=== PATIENT | male | born 1930 | race Hispanic/Latino ===

== ENCOUNTER 2020-11-27 14:34 | Inpatient (IN) | payer OTHER ==
--- OUTSIDE RECORDS SUMMARY | 2020-11-27 14:36 | XMS REPORT | Continuity of Care Document ---
:1930 Author Organization [facility] t Address [address] [place] [address] Care Team Providers Name Role Phone DR THOMAS HERNÁNDEZ Attending Clinician Unavailable DR THOMAS HERNÁNDEZ Admitting Clinician Unavailable Problems This patient has no known problems. Allergies, Adverse Reactions, Alerts This patient has no known allergies or adverse reactions. Medications This patient has no known medications. Procedures This patient has no known procedures. Encounters Start End Encounter Admission Attending Care Care Encounter Source Date/Time Date/Time Type Type Clinicians Facility Department ID 2020-05-31 2020-06-18 Inpatient E [facility] [id number] 11:43:00 17:45:00 [facility] Results Test Description Test Time Test Comments Results Result Comments Source SARS-CoV (RAPID ANTIGEN) 2020-06-18 15:40:00 Test Item Value Reference Range Interpretation Comme nts SARS-CoV (ANTIGEN) (test code = NEGATIVE NEGATIVE COVAG) COVID AG (test code = COVAGC) This test has been marketed under the FDA Emergency Use Authorization (EUA) to meet challenges of the COVID-19 pandemic. The validation standards normally enforced by the FDA and the [employer] the [employer] (CAP) are more stringent than those required for this test. Therefore, the result should be interpreted with caution and close attention to other clinical and epidemiological data VALPROIC ACID (DEPAKENE)2020-06-15 06:54:00 Test Item Value Reference Range Interpretation Comments VALP ACID (test code = 95A) 73.4 ug/mL 50.0-100.0 VALPROIC ACID (DEPAKENE)2020-06-10 07:33:00 Test Item Value Reference Range Interpretation Comments VALP ACID (test code = 95A) 82.1 ug/mL 50.0-100.0 LIPID [id number] 06:58:00 Test Item Value Reference Range Interpretation Comments CHOLESTROL (test code = 44A) 155 mg/dL 140-200 TRIGLYCERI (test code = 42B) 89 mg/dL <=149 HDL (test code = 83D) 34.0 mg/dL 40.0-60.0 L LDL (test code = 34B) 102 mg/dL <=99 H CHL/HDL (test code = CHR) 4.6 0.0-3.4 H COMPREHENSIVE METABOLIC [id number] 06:24:00 Test Item Value Reference Range Interpretation Comments GLUCOSE (test code = 88 mg/dL 75-100 06D) SODIUM (test code = 145 mmol/L 136-145 01A) POTASSIUM (test code = 4.1 mmol/L 3.6-5.1 01B) CHLORIDE (test code = 111 mmol/L 98-107 H 04A) CO2 (test code = 02A) 29 mmol/L 22-32 ANION GAP (test code = 9.1 mmol/L ANG) BUN (test code = 05D) 23 mg/dL 7-18 H CREATININE (test code 1.1 mg/dL 0.7-1.3 = 03E) GFR (test code = GFR) 57 mL/min/1.73m\S\2 >=90 L GFR 66 mL/min/1.73m\S\2 >=90 L (test code = GFRAA) EGFR (test code = eGFR BY CKD-EPI EGFR) CALCULATION IS NOT RECOMMENDED FOR PATIENTS UNDER 18 YEARS OF AGE. BUN/CREA (test code = 20 12-20 BCR) CALCIUM (test code = 8.7 mg/dL 8.3-9.5 09D) BILI TOTAL (test code 0.5 mg/dL 0.2-1.0 = 11A) PROTEIN (test code = 6.3 g/dL 6.4-8.2 L 07D) ALBUMIN (test code = 3.1 g/dL 3.5-4.8 L 08D) GLOBULIN (test code = 3.2 g/dL 1.5-3.8 GLB) ALB/GLOB (test code = 1.0 1.0-2.6 AGRR) ALK PHOS (test code = 55 IU/L 42-121 35A) AST (test code = 30A) 19 IU/L <=42 ALT (test code = 31A) 19 IU/L <=78 THYROID PANEL/SCREEN (TSH)2020-05-31 19:38:00 Test Item Value Reference Range Interpretation Comments TSH (test code = A57) 2.010 uIU/mL 0.358-3.740 [id number] 19:30:00 Test Item Value Reference Range Interpretation Comments PREALBUMIN (test code = 08E) 24 mg/dL 18-38 B12 [id number] 19:30:00 Test Item Value Reference Range Interpretation Comments VIT B12 (test code = A60) 525.0 pg/mL 180.0-914.0 VALPROIC ACID (DEPAKENE)2020-05-31 19:19:00 Test Item Value Reference Range Interpretation Comments VALP ACID (test code = 95A) 6.5 ug/mL 50.0-100.0 LL [id number] 19:19:00 Test Item Value Reference Range Interpretation Comments FOLATE (test code = A75) 17.1 ng/mL 3.1-17.5 LIPID [id number] 19:19:00 Test Item Value Reference Range Interpretation Comments CHOLESTROL (test code = 44A) 181 mg/dL 140-200 TRIGLYCERI (test code = 42B) 130 mg/dL <=149 HDL (test code = 83D) 43.0 mg/dL 40.0-60.0 LDL (test code = 34B) 116 mg/dL <=99 H CHL/HDL (test code = CHR) 4.2 0.0-3.4 H [id number] 19:06:00 Test Item Value Reference Range Interpretation Comments Hb A1C % (test code 5.8 % 3.8-6.4 = HBA) A1C % (test code = HbA1c (% ) A1C) Reference Range Normal <5.7 Prediabetes 5.7-6.4 Diabetic >=6.5 [id number] 19:02:00 Test Item Value Reference Range Interpretation Comments MAGNESIUM (test code = 48A) 2.3 mg/dL 1.8-2.4 URINALYSIS WITH [id number] 15:54:00 Test Item Value Reference Range Interpretation Comments COLOR (test code = COLU) YELLOW YELLOW CLARITY (test code = CLA) CLOUDY CLEAR A GLUCOSE UR (test code = UA GLUCOSE) NEGATIVE NEGATIVE BILI UR (test code = BILE) NEGATIVE NEGATIVE KETONES UR (test code = WANG) NEGATIVE NEGATIVE SP GRAVITY (test code = SPGR) 1.026 1.005-1.030 PH UR (test code = PH) 6.5 4.5-8.0 PROTEIN UR (test code = PU) TRACE NEGATIVE A UROBIL UR (test code = UROQ) 1.0 EU/dL 0.2-1.0 NITRITE UR (test code = NITRITE) NEGATIVE NEGATIVE BLOOD UR (test code = UA BLOOD) NEGATIVE NEGATIVE LEUK ES UR (test code = LEUK) NEGATIVE NEGATIVE WBC UR (test code = UWBC) 0 /HPF 0-3 RBC UR (test code = URBC) 0 /HPF 0-2 EPITH UR (test code = UEPC) FEW /LPF NONE A BACTERIA UR (test code = UBACT) FEW /HPF NONE A CAST UR (test code = CAST) /LPF NONE CRYSTAL UR (test code = CRYU) / LPF NONE MUCUS UR (test code = MUC) FEW / HPF NONE A AMORPH UR (test code = ANIA) / HPF NONE TRICH UR (test code = UTRICH) /HPF NONE YEAST UR (test code = UY) /HPF NONE SPERM UR (test code = USPERM) /HPF NONE DRUGS OF [id number] 15:47:00 Test Item Value Reference Range Interpretation Comments DRUG SCRN (test code URINE DRUG SCREEN = HDOA) This is an unconfirmed screening result and should not be used for non-medical purposes CANNABINOD (test code Negative NEGATIVE = 88C) AMPHETAMINE (test Negative NEGATIVE code = 84A) BENZODIAZP (test code Negative NEGATIVE = 86A) BARBITURAT (test code Negative NEGATIVE = 85A) OPIATES (test code = Negative NEGATIVE 92B) COCAINE (test code = Negative NEGATIVE 87A) PHENCYCLID (test code Negative NEGATIVE = 66A) METHADONE (test code Negative NEGATIVE = 64A) DOAH (test code = DOAH.) *URINE DRUG SCREEN Cut-off values are as follows: Cannabinoids 50 ng/mL Cocaine 300 ng/mL Amphetamines 1000 ng/mL Phencyclidine 25 ng/mL Benzodiazepines 200 ng.mL Methadone 300 ng/mL Barbiturates 200 ng/mL Opiates 2000 ng/mL LDH-LACTIC [id number] 13:54:00 Test Item Value Reference Range Interpretation Comments LDH (test code = 33A) 160 IU/L 87-241 [id number] 13:53:00 Test Item Value Reference Range Interpretation Comments ACETAMINPH (test code = 94M) <2.0 ug/mL 10.0-30.0 L C-REACTIVE PROTEIN [id number] 13:53:00 Test Item Value Reference Range Interpretation Comments CRP QUANT (test code <2.9 mg/L 0.0-2.9 = CRPQ) Method Change (test Please note the code = METHOD) change in Method and the reference range ALCOHOL BLOOD (ETOH)2020-05-31 13:52:00 Test Item Value Reference Range Interpretation Comments ETOH (test code = HALC) ETHANOL The result is to be used only for medical purposes ALCOHOL (test code = <10 mg/dL <=10 56A) [id number] 13:52:00 Test Item Value Reference Range Interpretation Comments FERRITIN (test code = A19) 68.1 ng/mL 26.0-388.0 COMPREHENSIVE METABOLIC [id number] 13:51:00 Test Item Value Reference Range Interpretation Comments GLUCOSE (test code = 93 mg/dL 75-100 06D) SODIUM (test code = 141 mmol/L 136-145 01A) POTASSIUM (test code = 4.1 mmol/L 3.6-5.1 01B) CHLORIDE (test code = 107 mmol/L 98-107 04A) CO2 (test code = 02A) 31 mmol/L 22-32 ANION GAP (test code = 7.1 mmol/L ANG) BUN (test code = 05D) 20 mg/dL 7-18 H CREATININE (test code 1.3 mg/dL 0.7-1.3 = 03E) GFR (test code = GFR) 49 mL/min/1.73m\S\2 >=90 L GFR 57 mL/min/1.73m\S\2 >=90 L (test code = GFRAA) EGFR (test code = eGFR BY CKD-EPI EGFR) CALCULATION IS NOT RECOMMENDED FOR PATIENTS UNDER 18 YEARS OF AGE. BUN/CREA (test code = 16 12-20 BCR) CALCIUM (test code = 9.1 mg/dL 8.3-9.5 09D) BILI TOTAL (test code 0.5 mg/dL 0.2-1.0 = 11A) PROTEIN (test code = 7.7 g/dL 6.4-8.2 07D) ALBUMIN (test code = 4.0 g/dL 3.5-4.8 08D) GLOBULIN (test code = 3.7 g/dL 1.5-3.8 GLB) ALB/GLOB (test code = 1.1 1.0-2.6 AGRR) ALK PHOS (test code = 81 IU/L 42-121 35A) AST (test code = 30A) 26 IU/L <=42 ALT (test code = 31A) 29 IU/L <=78 AMMONIA [id number] 13:45:00 Test Item Value Reference Range Interpretation Comments AMMONIA (test code = 54A) 11 umol/L 11-32 [id number] 13:45:00 Test Item Value Reference Range Interpretation Comments SALICYLATE (test code = 94B) <1.7 mg/dL 2.8-20.0 L [id number] 13:43:00 Test Item Value Reference Range Interpretation Comments D-DIMER (test code = 370 ng/mL D-DU 0-234 H DDI) D-DIMER COMMENT (test *Level to rule out code = DDCOM) DVT or PE: <235 ng/mL D-DU* CBC (INCLUDES AUTOMATED DIFFERENTIAL)2020-05-31 13:34:00 Test Item Value Reference Range Interpretation Comments WBC (test code = WBC) 7.0 10\S\3/uL 4.5-11.0 RBC (test code = RBC) 4.84 10\S\6/uL 3.80-5.80 HGB (test code = HBG) 15.6 g/dL 14.0-18.0 HCT (test code = HCT) 47.5 % 35.0-46.0 H MCV (test code = MCV) 98.1 fL 80.0-94.0 H MCH (test code = MCH) 32.2 pg 27.0-31.0 H MCHC (test code = MCHC) 32.8 g/dL 32.0-36.0 RDW (test code = RDW) 13.1 % 11.5-14.5 PLT (test code = PLT) 189 10\S\3/uL 130-400 MPV (test code = MPV) 9.3 fL 9.4-12.4 L NEUTROP # (test code = NE#) 4.3 10\S\3/uL 2.0-8.0 LYMPH # (test code = LY#) 1.8 10\S\3/uL 1.2-4.0 MONOCYTE # (test code = MO#) 0.7 10\S\3/uL 0.0-1.1 EOSINOPH # (test code = EO#) 0.2 10\S\3/uL 0.0-0.7 BASOPHIL # (test code = BA#) 0.0 10\S\3/uL 0.0-0.3 IG # (test code = IG#) 0.02 10\S\3/uL 0.00-0.06 NRBC # (test code = NRBC#) 0.00 10\S\3/uL 0.00-0.01 NEUTROPH % (test code = NE%) 60.9 % 35.0-73.0 LYMPH % (test code = LY%) 25.9 % 20.0-55.0 MONO % (test code = MO%) 9.5 % 2.5-10.0 EOSINOPH % (test code = EO%) 2.8 % 0.0-5.0 BASOPHIL % (test code = BA%) 0.6 % 0.0-2.0 IG % (test code = IG%) 0.3 % 0.0-0.8 NRBC% (test code = NRBC%) 0.0 % 0.0-0.2 MANDIFF (test code = MDIFF) NO NO RBC MORPH (test code = RBCMOR) NORMAL SARS-CoV (RAPID ANTIGEN)2020-05-31 13:01:00 Test Item Value Reference Range Interpretation Comments SARS-CoV (ANTIGEN) NEGATIVE NEGATIVE (test code = COVAG) COVID AG (test This test has been code = COVAGC) marketed under the FDA Emergency Use Authorization (EUA) to meet challenges of the COVID-19 pandemic. The validation standards normally enforced by the FDA and the [employer] the [place] (CAP) are more stringent than those required for this test. Therefore, the result should be interpreted with caution and close attention to other clinical and epidemiological data
[2020-11-27 15:38] LABS: Arterial Blood Carboxyhemoglob 1.4 % (0-1.5); Blood Gas Oxyhemoglobin 91.5 % (94-97); Blood O2 Saturation 93.8 % (92-98.5)
[2020-11-27 16:03] LABS: Absolute Lymphocytes (CBC) 0.4 K/uL (0.7-4.9); Basophils % 0.4 % (0-1.3); Lymphocytes % 3.8 % (15.3-44.8); MPV 8.1 fL (7.6-11.3); RBC Red Blood Cell Count 4.58 M/uL (4.33-5.43)
[2020-11-27 16:10] LABS: Protime INR 1.21
[2020-11-27] MEDS ORDERED: CEFTRIAXONE/SWI 1gm 1 GM/10 ML SYR ONE (16:17)
[2020-11-27] MEDS ORDERED: NA CHLORIDE 0.9% 1,000 ML ONE (16:17)
[2020-11-27 16:21] LABS: Albumin 3.3 g/dL (3.4-5.0); Bilirubin Direct 0.2 mg/dL (0-0.2); Bilirubin Total 0.8 mg/dL (0.2-1.0); Magnesium 1.9 mg/dL (1.8-2.4); Potassium 4.1 mmol/L (3.5-5.1); Protein, Total 7.2 g/dL (6.4-8.2)
--- NOTE | 2020-11-27 16:23 | ER ---
Nurse's Notes [facility] Name: Ozzy Prado Age: 89 yrs Sex: Male : 1930 Arrival Date: 11/27/2020 Time: 14:59 Bed 14 Private MD: Diagnosis: Pneumonia, unspecified organism;Fever, unspecified;Altered mental status, unspecified;Hypoxemia;Bipolar disorder;Unspecified kidney failure-acute on chronic;Non-ST elevation (NSTEMI) myocardial infarction;Polycystic kidney, unspecified Presentation: 11/27 14:59 Chief complaint: EMS states: detention staff reported increased confusion and aa5 reported O2 sat was 80%, and reported fever. EMS reports O2 sat fluctuated between 95 to 100% RA en route to hospital. Pt currently A\T\O x person. 14:59 Coronavirus screen: fever. Ebola Screen: Patient negative for fever greater than or aa5 equal to 101.5 degrees Fahrenheit, and additional compatible Ebola Virus Disease symptoms. Initial Sepsis Screen: Does the patient meet any 2 criteria? RR > 20 per min. HR > 90 bpm. Yes Does the patient have a suspected source of infection? No. Patient's initial sepsis screen is negative. Risk Assessment: Do you want to hurt yourself or someone else? Unable to obtain. Onset of symptoms was November 2020. 14:59 Acuity: CYNTHIA 2 aa5 14:59 Method Of Arrival: EMS: [facility] aa5 14:59 Care prior to arrival: Glucose check: 117. aa5 14:59 Transition of care: patient was received from another setting of care ([facility]-term [facility]. Historical: - Allergies: 15:00 No Known Allergies; aa5 - PMHx: 15:00 Hyperlipidemia; Bipolar disorder; Glaucoma; macular degeneration; Hypertension; Legal aa5 Blindness; malnutrition; Dementia; Anxiety; - Immunization history:: Adult Immunizations unknown. - Social history:: Smoking status: unknown. Screenin:30 Abuse screen: No signs of abuse noted. aa5 15:40 Nutritional screening: No deficits noted. Tuberculosis screening: No symptoms or risk aa5 factors identified. Fall Risk Secondary diagnosis (15 points) dementia, IV access (20 points). Mental Status- Overestimates/Forgets Limitations (15 pts.). Total Butts Fall Scale indicates High Risk Score (45 or more points). Fall prevention measures have been instituted. Side Rails Up X 2 Placed Close to Nursing Station. Assessment: 15:00 General: Appears uncomfortable, Behavior is calm, cooperative. Pain: Unable to use pain aa5 scale. Does not appear to understand pain scale. Neuro: Level of Consciousness is awake, confused, Pt able to follow some commands. Oriented to person, V Belt Builder are weak bilaterally Moves all extremities. Speech is normal. Cardiovascular: Heart tones S1 S2 present Rhythm is sinus tachycardia. Respiratory: Airway is patent Respiratory effort is even, unlabored, Respiratory pattern is regular, symmetrical, Breath sounds are diminished bilaterally. GI: Abdomen is round non-distended, Bowel sounds present X 4 quads. Abd is soft X 4 quads. : Brief noted. EENT: No signs and/or symptoms were reported regarding the EENT system. Derm: Skin is dry, Skin is normal, Skin temperature is hot. Musculoskeletal: Range of motion: intact in all extremities. 16:00 Reassessment: Pt appears more altered at this time, pt attempting to remove heart aa5 monitor, pt is currently A\T\O x 0, pt's skin is flushed, hot, and dry. was notified. . 16:12 Reassessment: Pt taken to CT via stretcher . aa5 16:40 Reassessment: Report given to BUTCH Vargas. aa5 16:40 Reassessment: Pt cleaned of urinary incontinence, clean brief applied. . aa5 18:14 General: Behavior is calm, cooperative. ap3 18:55 Reassessment: patient removed IV from right AC. Nurse cleaned site, and applied ap3 dressing. Catheter was intact upon inspection. 19:30 Reassessment: Received care of pt at this time. Pt awake and alert, oriented to person. ad5 Denies pain, reports need to use bsc, assisted by RN x 2. Pt unsteady during transfer, placed back into stretcher, positioned for comfort. Resp with ease, VSS at this time. Heparin infusing without difficulty, no abnormalities noted to IV site. Pt remains on CM with BP and pulse ox in place. 20:00 Reassessment: Pt with multiple attempts to get out of stretcher, repositioned for ad5 comfort by this RN. Reoriented to plan of care. NAD noted, will continue to monitor. 22:00 Reassessment: Pt is alert and oriented x 1, resp unlabored, IV site, intact with no bb erythema or edema noted. Pt transferred to room 214 via stretcher by this RN accompanied by family. Vital Signs: 14:59 BP 167 / 80; Pulse 101; Resp 22 S; Temp 98.9(O); Pulse Ox 97% on R/A; aa5 15:15 BP 139 / 87; Pulse 109; Resp 24 S; Pulse Ox 94% on 2 lpm NC; aa5 15:45 BP 141 / 96; Pulse 104; Resp 22 S; Pulse Ox 99% on 2 lpm NC; aa5 16:08 Temp 101.6(O); aa5 16:40 BP 153 / 76; Pulse 105; Resp 26 S; Pulse Ox 100% on 2 lpm NC; aa5 17:26 Weight 73.3 kg; aa5 18:14 BP 99 / 56; Pulse 74; Pulse Ox 98% ; ap3 19:00 BP 116 / 53; Pulse 62; Resp 16 S; Pulse Ox 100% on R/A; bb 22:00 BP 98 / 57; Pulse 66; Resp 20; Pulse Ox 96% on R/A; bb ED Course: 14:59 Patient arrived in ED. aa5 14:59 Arm band placed on Patient placed in an exam room, on a stretcher. aa5 15:00 Patient has correct armband on for positive identification. Placed in gown. Bed in low aa5 position. Call light in reach. Side rails up X2. environmental monitoring technician on. Pulse ox on. NIBP on. 15:01 Hamilton Mcleod MD is Attending Physician. ping 15:11 Triage completed. aa5 15:38 Inserted saline lock: 18 gauge in left antecubital area, using aseptic technique. Blood aa5 collected. 15:38 First set of blood cultures drawn by me. aa5 15:39 XRAY Chest (1 view) In Process Unspecified. EDMS 15:48 Initial lab(s) drawn, by me, sent to lab. Second set of blood cultures drawn by me. aa5 Inserted saline lock: 20 gauge in right antecubital area, using aseptic technique. Blood collected. 16:15 Toshia Mcgowan, BUTCH is Primary Nurse. aa5 16:20 Inder Greer MD is Hospitalizing Provider. ping 16:20 COVID swab sent to lab. Flu and/or RSV swab sent to lab. aa5 16:29 CT Head Brain wo Cont In Process Unspecified. EDMS 16:29 CT Chest Abdomen Pelvis W/O Contrast In Process Unspecified. EDMS 16:37 EKG done, by ED staff, reviewed by Hamilton Mcleod MD. aa5 16:45 Straight cath inserted, using sterile technique, 16 Fr. Specimen obtained. Patient aa5 tolerated poorly. 17:17 initiated transfer to [facility]. bd 18:02 pt denied at [facility] due to no icu bed available at this bd time, per vasquez mckenna. 21:29 No provider procedures requiring assistance completed. Patient admitted, IV remains in ad5 place. intact. Administered Medications: 16:00 Drug: NS 0.9% 1000 ml Route: IV; Rate: 1 bolus; Site: right antecubital; aa5 16:00 Drug: Rocephin (cefTRIAXone) 1 grams Route: IV; Rate: per protocol; Site: right aa5 antecubital; 19:02 Follow up: Response: No adverse reaction ap3 16:40 Drug: Tylenol Suppository 650 mg Route: NV; aa5 19:00 Follow up: Response: No adverse reaction ap3 19:02 Follow up: Response: No adverse reaction ap3 16:59 Drug: Lopressor (metoprolol) 2.5 mg Route: IVP; Site: left forearm; tr6 19:01 Follow up: Response: No adverse reaction ap3 16:59 Drug: Pepcid (famotidine) 20 mg Route: IVP; Site: left forearm; tr6 19:00 Follow up: Response: No adverse reaction ap3 17:00 Drug: Zosyn (piperacillin-tazobactam) 3.375 grams Route: IVPB; Infused Over: 60 mins; tr6 Site: left forearm; 17:08 Drug: Lopressor (metoprolol) 2.5 mg Route: IVP; Site: left forearm; tr6 19:01 Follow up: Response: No adverse reaction ap3 17:08 Drug: Aspirin Suppository 300 mg Route: NV; tr6 19:01 Follow up: Response: No adverse reaction ap3 17:39 Drug: Heparin (PR-Bolus No thrombolytic) - HEParin 60 units/kg {Co-Signature: aa5 ap3 (Toshia Mcgowan RN).} Route: IVP; Site: right antecubital; 19:00 Follow up: Response: No adverse reaction ap3 17:39 Drug: Heparin (PR Drip) 12 units/kg/hr - (HEParin 03672 units, D5W 500 ml) ap3 {Co-Signature: aa5 (Toshia Mcgowan RN).} Route: IV; Rate: 900 units/hr; Site: right antecubital; Outcome: 16:22 Decision to Hospitalize by Provider. ping 21:30 Admitted to Med/surg accompanied by nurse, via stretcher, on monitor, with chart, ad5 Report called to BUTCH Bertrand 21:30 Condition: stable 21:30 Instructed on the need for admit, Demonstrated understanding of 22:17 Patient left the ED. ketty Signatures: Dispatcher [employer] EDMS Freida Rivera Corey, MD MD cha Ballard, Brenda RN RN bb Toshia Mcgowan RN RN aa5 Alicia Goel RN RN ap3 Anali Rodriguez RN RN tr6 Sumanth Loomis ad5 Toshia Mcgowan RN aa5
--- NOTE | 2020-11-27 16:23 | EDPHYS ---
Physician Documentation [facility] Name: Ozzy Prado Age: 89 yrs Sex: Male : 1930 Arrival Date: 11/27/2020 Time: 14:59 Bed 14 Private MD: ED Physician Hamilton Mcleod HPI: 11/27 15:17 This 89 yrs old Male presents to ER via EMS with complaints of Altered Mental ping Status. 15:17 The patient presents with confusion, decreased mental status, trouble concentrating. ping Onset: The symptoms/episode began/occurred 1 day(s) ago. Possible causes: CVA or TIA, drug use, head injury, seizure, sepsis. Associated signs and symptoms: Pertinent positives: shortness of breath. Current symptoms: In the emergency department the patient's symptoms are unchanged from the initial presentation. Patient's baseline: Neuro: alert but confused, Motor: no deficits. The patient has not experienced similar symptoms in the past. Historical: - Allergies: 15:00 No Known Allergies; aa5 - PMHx: 15:00 Hyperlipidemia; Bipolar disorder; Glaucoma; macular degeneration; Hypertension; Legal aa5 Blindness; malnutrition; Dementia; Anxiety; - Immunization history:: Adult Immunizations unknown. - Social history:: Smoking status: unknown. ROS: 15:18 Constitutional: Negative for fever, chills, and weight loss, Eyes: Negative for injury, ping pain, redness, and discharge, ENT: Negative for injury, pain, and discharge, Neck: Negative for injury, pain, and swelling, Cardiovascular: Negative for chest pain, palpitations, and edema, Abdomen/GI: Negative for abdominal pain, nausea, vomiting, diarrhea, and constipation, Back: Negative for injury and pain, : Negative for injury, bleeding, discharge, and swelling, MS/Extremity: Negative for injury and deformity, Skin: Negative for injury, rash, and discoloration, Psych: Negative for depression, anxiety, suicide ideation, homicidal ideation, and hallucinations, Allergy/Immunology: Negative for hives, rash, and allergies, Endocrine: Negative for neck swelling, polydipsia, polyuria, polyphagia, and marked weight changes, Hematologic/Lymphatic: Negative for swollen nodes, abnormal bleeding, and unusual bruising. 15:18 Respiratory: Positive for cough, wheezing, expiratory. 15:18 Neuro: Positive for altered mental status, weakness. Exam: 15:18 Constitutional: This is a well developed, well nourished patient who is awake, alert, ping and in no acute distress. Head/Face: Normocephalic, atraumatic. Eyes: Pupils equal round and reactive to light, extra-ocular motions intact. Lids and lashes normal. Conjunctiva and sclera are non-icteric and not injected. Cornea within normal limits. Periorbital areas with no swelling, redness, or edema. ENT: Nares patent. No nasal discharge, no septal abnormalities noted. Tympanic membranes are normal and external auditory canals are clear. Oropharynx with no redness, swelling, or masses, exudates, or evidence of obstruction, uvula midline. Mucous membranes moist. Neck: Trachea midline, no thyromegaly or masses palpated, and no cervical lymphadenopathy. Supple, full range of motion without nuchal rigidity, or vertebral point tenderness. No Meningismus. Chest/axilla: Normal chest wall appearance and motion. Nontender with no deformity. No lesions are appreciated. Cardiovascular: Regular rate and rhythm with a normal S1 and S2. No gallops, murmurs, or rubs. Normal PMI, no JVD. No pulse deficits. Respiratory: Lungs have equal breath sounds bilaterally, clear to auscultation and percussion. No rales, rhonchi or wheezes noted. No increased work of breathing, no retractions or nasal flaring. Abdomen/GI: Soft, non-tender, with normal bowel sounds. No distension or tympany. No guarding or rebound. No evidence of tenderness throughout. Back: No spinal tenderness. No costovertebral tenderness. Full range of motion. Male : Normal genitalia with no discharge or lesions. Skin: Warm, dry with normal turgor. Normal color with no rashes, no lesions, and no evidence of cellulitis. Vital Signs: 14:59 BP 167 / 80; Pulse 101; Resp 22 S; Temp 98.9(O); Pulse Ox 97% on R/A; aa5 15:15 BP 139 / 87; Pulse 109; Resp 24 S; Pulse Ox 94% on 2 lpm NC; aa5 15:45 BP 141 / 96; Pulse 104; Resp 22 S; Pulse Ox 99% on 2 lpm NC; aa5 16:08 Temp 101.6(O); aa5 16:40 BP 153 / 76; Pulse 105; Resp 26 S; Pulse Ox 100% on 2 lpm NC; aa5 17:26 Weight 73.3 kg; aa5 18:14 BP 99 / 56; Pulse 74; Pulse Ox 98% ; ap3 19:00 BP 116 / 53; Pulse 62; Resp 16 S; Pulse Ox 100% on R/A; bb 22:00 BP 98 / 57; Pulse 66; Resp 20; Pulse Ox 96% on R/A; bb MDM: 15:02 Patient medically screened. ping 15:19 Differential Diagnosis: CVA, electrolyte abnormality, alcohol intoxication, pneumonia, ping seizure, sepsis, TIA, UTI, volume depletion. Data reviewed: vital signs, nurses notes, lab test result(s), EKG, radiologic studies, CT scan, plain films. Data interpreted: anthropometrist: rate is 101 beats/min, rhythm is regular, Pulse oximetry: on room air is 94 %. Counseling: I had a detailed discussion with the patient and/or guardian regarding: the historical points, exam findings, and any diagnostic results supporting the discharge/admit diagnosis, lab results, radiology results, the need for further work-up and treatment in the hospital. 11/27 15:16 Order name: Basic Metabolic Panel [facility] 11/27 15:16 Order name: CBC with Diff [facility] 11/27 15:16 Order name: LFT's [facility] 11/27 15:16 Order name: Magnesium [facility] 11/27 15:16 Order name: NT PRO-BNP; Complete Time: 16:30 [facility] 11/27 15:16 Order name: PT-INR; Complete Time: 16:17 [facility] 11/27 15:16 Order name: Troponin (emerg Dept Use Only); Complete Time: 16:30 [facility] 11/27 15:16 Order name: Valproic Acid (depakote); Complete Time: 16:30 [facility] 11/27 15:16 Order name: Blood Culture Adult (2) [facility] 11/27 15:16 Order name: Lipase; Complete Time: 16:30 [facility] 11/27 15:16 Order name: Lactate; Complete Time: 16:30 [facility] 11/27 15:16 Order name: ABG: on room air; Complete Time: 16:17 ping 11/27 15:16 Order name: Basic Metabolic Panel; Complete Time: 16:30 [facility] 11/27 15:17 Order name: CBC with Automated Diff; Complete Time: 18:57 [facility] 11/27 15:17 Order name: Liver (Hepatic) Function; Complete Time: 16:30 [facility] 11/27 15:17 Order name: Magnesium; Complete Time: 16:30 [facility] 11/27 16:57 Order name: Urine Dipstick-Ancillary; Complete Time: 16:59 [facility] 11/27 17:18 Order name: COVID-19/FLU A+B; Complete Time: 18:57 [facility] 11/27 17:31 Order name: CBC Smear Scan; Complete Time: 18:57 [facility] 11/27 18:19 Order name: Basic Metabolic Panel [facility] 11/27 18:19 Order name: Creatine Phosphokinase [facility] 11/27 18:19 Order name: NT PRO-BNP [facility] 11/27 18:19 Order name: T4 Free [facility] 11/27 18:19 Order name: Thyroid Stimulating Hormone [facility] 11/27 18:19 Order name: Urinalysis [facility] 11/27 18:19 Order name: CBC with Automated Diff [facility] 11/27 18:19 Order name: CBC with Automated Diff [facility] 11/27 15:16 Order name: XRAY Chest (1 view); Complete Time: 16:30 [facility] 11/27 15:16 Order name: EKG; Complete Time: 15:17 [facility] 11/27 15:16 Order name: Cardiac monitoring; Complete Time: 15:54 [facility] 11/27 15:16 Order name: EKG - Nurse/Tech; Complete Time: 16:56 [facility] 11/27 15:16 Order name: IV Saline Lock; Complete Time: 15:54 [facility] 11/27 15:16 Order name: Labs collected and sent; Complete Time: 15:54 [facility] 11/27 15:16 Order name: O2 Per Protocol; Complete Time: 15:54 [facility] 11/27 15:16 Order name: O2 Sat Monitoring; Complete Time: 15:55 [facility] 11/27 15:16 Order name: CT Head Brain wo Cont; Complete Time: 16:51 [facility] 11/27 15:16 Order name: CT Chest Abdomen Pelvis W/O Contrast; Complete Time: 16:59 [facility] 11/27 16:16 Order name: Straight Cath - Urine; Complete Time: 16:58 aa5 11/27 18:18 Order name: Heart Healthy [facility] 11/27 18:19 Order name: Troponin I [facility] 11/27 18:19 Order name: Troponin I [facility] 11/27 18:19 Order name: Troponin I [facility] 11/27 18:19 Order name: Troponin I [facility] 11/27 18:19 Order name: Basic Metabolic Panel [facility] 11/27 18:19 Order name: Basic Metabolic Panel [facility] 11/27 20:37 Order name: CBC with Automated Diff [facility] 11/27 20:37 Order name: CBC Smear Scan [facility] 11/27 21:08 Order name: Protime (+INR) [facility] 11/27 21:08 Order name: PTT, Activated Partial Thromb [facility] 11/27 16:56 Order name: IV Saline Lock - Large Bore; Complete Time: 16:56 ping Administered Medications: 16:00 Drug: NS 0.9% 1000 ml Route: IV; Rate: 1 bolus; Site: right antecubital; aa5 16:00 Drug: Rocephin (cefTRIAXone) 1 grams Route: IV; Rate: per protocol; Site: right aa5 antecubital; 19:02 Follow up: Response: No adverse reaction ap3 16:40 Drug: Tylenol Suppository 650 mg Route: GA; aa5 19:00 Follow up: Response: No adverse reaction ap3 19:02 Follow up: Response: No adverse reaction ap3 16:59 Drug: Lopressor (metoprolol) 2.5 mg Route: IVP; Site: left forearm; tr6 19:01 Follow up: Response: No adverse reaction ap3 16:59 Drug: Pepcid (famotidine) 20 mg Route: IVP; Site: left forearm; tr6 19:00 Follow up: Response: No adverse reaction ap3 17:00 Drug: Zosyn (piperacillin-tazobactam) 3.375 grams Route: IVPB; Infused Over: 60 mins; tr6 Site: left forearm; 17:08 Drug: Lopressor (metoprolol) 2.5 mg Route: IVP; Site: left forearm; tr6 19:01 Follow up: Response: No adverse reaction ap3 17:08 Drug: Aspirin Suppository 300 mg Route: GA; tr6 19:01 Follow up: Response: No adverse reaction ap3 17:39 Drug: Heparin (DE-Bolus No thrombolytic) - HEParin 60 units/kg {Co-Signature: aa5 ap3 (Toshia Mcgowan RN).} Route: IVP; Site: right antecubital; 19:00 Follow up: Response: No adverse reaction ap3 17:39 Drug: Heparin (DE Drip) 12 units/kg/hr - (HEParin 70058 units, D5W 500 ml) ap3 {Co-Signature: aa5 (Toshia Mcgowan RN).} Route: IV; Rate: 900 units/hr; Site: right antecubital; Disposition: 11/27/20 16:22 Hospitalization ordered by Inder Greer for Inpatient Admission. Preliminary diagnosis are Pneumonia, unspecified organism, Fever, unspecified, Altered mental status, unspecified, Hypoxemia, Bipolar disorder, Unspecified kidney failure - acute on chronic, Non-ST elevation (NSTEMI) myocardial infarction, Polycystic kidney, unspecified. - Bed requested for Telemetry/MedSurg (Inpatient). - Status is Inpatient Admission. bb - Condition is Fair. - Problem is new. - Symptoms have improved. Signatures: Dispatcher [employer] [facility] Hamilton Mcleod MD MD cha Ballard, Brenda, RN RN bb Toshia Mcgowan, BUTCH RN aa5 Shira Chaney RN RN tl1 Alicia Goel RN RN ap3 Anali Rodriguez RN RN tr6 Toshia Mcgowan RN aa5 Corrections: (The following items were deleted from the chart) 16:22 16:22 Hospitalization Ordered by Inder Greer MD for Inpatient Admission. Preliminary ping diagnosis is Pneumonia, unspecified organism; Fever, unspecified; Altered mental status, unspecified; Hypoxemia. Bed requested for Telemetry/MedSurg (Inpatient). Status is Inpatient Admission. Condition is Fair. Problem is new. Symptoms have improved. [facility] 16:31 16:22 CORONAVIRUS+MR.LAB.BRZ ordered. [facility] 16:32 16:17 Influenza Screen (A \T\ B)+BA.LAB.BRZ ordered. [facility] 17:05 16:22 11/27/2020 16:22 Hospitalization Ordered by Inder Greer MD for Inpatient ping Admission. Preliminary diagnosis is Pneumonia, unspecified organism; Fever, unspecified; Altered mental status, unspecified; Hypoxemia; Bipolar disorder. Bed requested for Telemetry/MedSurg (Inpatient). Status is Inpatient Admission. Condition is Fair. Problem is new. Symptoms have improved. [facility] 17:06 17:05 11/27/2020 16:22 Hospitalization Ordered by Inder Greer MD for Inpatient ping Admission. Preliminary diagnosis is Pneumonia, unspecified organism; Fever, unspecified; Altered mental status, unspecified; Hypoxemia; Bipolar disorder; Unspecified kidney failure; Non-ST elevation (NSTEMI) myocardial infarction; Polycystic kidney, unspecified. Bed requested for Intensive Care Unit. Status is Inpatient Admission. Condition is Fair. Problem is new. Symptoms have improved. [facility] 20:48 17:06 11/27/2020 16:22 Hospitalization Ordered by Inder Greer MD for Inpatient tl1 Admission. Preliminary diagnosis is Pneumonia, unspecified organism; Fever, unspecified; Altered mental status, unspecified; Hypoxemia; Bipolar disorder; Unspecified kidney failure - acute on chronic; Non-ST elevation (NSTEMI) myocardial infarction; Polycystic kidney, unspecified. Bed requested for Intensive Care Unit. Status is Inpatient Admission. Condition is Fair. Problem is new. Symptoms have improved. [facility] 22:17 20:48 11/27/2020 16:22 Hospitalization Ordered by Inder Greer MD for Inpatient bb Admission. Preliminary diagnosis is Pneumonia, unspecified organism; Fever, unspecified; Altered mental status, unspecified; Hypoxemia; Bipolar disorder; Unspecified kidney failure - acute on chronic; Non-ST elevation (NSTEMI) myocardial infarction; Polycystic kidney, unspecified. Bed requested for Telemetry/MedSurg (Inpatient). Status is Inpatient Admission. Condition is Fair. Problem is new. Symptoms have improved. tl1
[2020-11-27 16:26] LABS: Troponin (Emerg Dept Use Only) 4.23 ng/mL (0.0-0.045)
--- NOTE | 2020-11-27 16:29 | RAD REPORT ---
EXAM DESCRIPTION: RAD - Chest Single View - 11/27/2020 3:39 pm CLINICAL HISTORY: DYSPNEA, altered mental status COMPARISON: None TECHNIQUE: AP portable chest image was obtained 11/27/2020 3:39 pm . FINDINGS: Lung volumes are low. Extensive interstitial opacification is present. Patchy alveolar opa cities are present as well. Lung markings are more pronounced in the left base. Heart size is normal. Vasculature within normal limits. Sternotomy wires are in place. No pneumothorax or large pleural ef fusion. No acute bony abnormality seen. No acute aortic findings suspected. IMPRESSION: Limited portable study showing interstitial and bilateral opacities on a baseline examin ation. Findings could be all chronic interstitial lung disease. Superimposed pneumonia, particularly in the left base, should be considered.
--- NOTE | 2020-11-27 16:42 | RAD REPORT ---
EXAM DESCRIPTION: CT - Head Brain Wo Cont - 11/27/2020 4:29 pm CLINICAL HISTORY: Declining state;Mental status change COMPARISON: No comparisons TECHNIQUE: Axial 5 mm thick images of the head were obtained without IV contrast. All CT scans are performed using dose optimization technique as appropriate and may include automated exposure control or mA/KV adjustment according to patient size. FINDINGS: No intracranial hemorrhage, mass, edema or shift of mid-line structures. No acute infarcti on changes seen. Patient has advanced atrophy with moderately advanced chronic ischemic change. Ventr icles are in proportion to the amount of volume loss. Physiologic and dense arterial tree calcificati ons are present. Mastoid air cells and visualized portions of the paranasal sinuses are clear. No acute bony findings. IMPRESSION: Negative non-contrast CT head examination for acute finding. Patient has advanced atrophy and chronic ischemic change. Ventricles are in proportion.
--- NOTE | 2020-11-27 16:51 | RAD REPORT ---
EXAM DESCRIPTION: CT - Chest Abd Pelvis Wo Con - 11/27/2020 4:29 pm CLINICAL HISTORY: Abdominal distention;Cough COMPARISON: No comparisons TECHNIQUE: Axial 5 millimeter thick images of the chest, abdomen and pelvis were obtained without IV contrast. Oral contrast was administered. All CT scans are performed using dose optimization technique as appropriate and may include automated exposure control or mA/KV adjustment according to patient size. FINDINGS: No focal mass or consolidation seen. Patient has prominent interstitial pattern in the mid and lower lung coe slightly worse in the left base. Only trace is of airspace opacification seen. No pneumothorax or pleural effusion. No chest wall mass or abnormal axillary lymphadenopathy seen. Mediastinal and hilar regions show no mass or lymphadenopathy. No pericardial thickening or effusio n. Dense coronary artery calcifications are present. Heart size is upper normal. Bilateral gynecomast ia noted. The liver, spleen and pancreas show no significant findings for non contrast imaging. Gallbladder is absent. No biliary tree dilatation. No hydronephrosis of either kidney identifiable. Bilateral nonobstructing vascular or calyx calculi s een. Patient has innumerable variably sized cysts throughout the left kidney and in the mid and lower right kidney. Largest cyst measures 8 cm lower pole right kidney. There is an exophytic 4.4 centimet er low-density mass lower pole right kidney. This is without calcification and is probably a slightly complex cyst. No adrenal abnormalities. No urinary bladder abnormalities. No dilated bowel loops or focal ball bowel wall thickening. Moderate stool volume present throughout the colon. There is moderate severity left-sided diverticulosis without diverticulitis findings. Appe ndix is normal. No free air, free fluid or inflammatory stranding. No hernia, mass or bulky lymphade nopathy. Disc and bone degenerative changes are present. No acute or pathologic bone process seen. Patient has very dense arterial tree calcifications. Significant iliac artery atherosclerotic change in stenosis identified but not fully assessed on noncontrast imaging. IMPRESSION: Diffusely prominent interstitial pattern throughout the mid and lower lung coe. No co nsolidation or mass lesion. Lung parenchymal findings could be interstitial edema or interstitial pne umonia. Innumerable variably sized cysts throughout both kidneys. A few atypical or complex cysts are present . No hydronephrosis seen. Isodense renal masses and pyelonephritis cannot be excluded. No acute GI findings identifiable. CT abdomen and pelvis imaging shows no significant or suspicious finding.
[2020-11-27 16:57] LABS: Urine Blood 2+ (Negative); Urine Glucose Negative (Negative); Urine Protein 2+ (Negative); Urine Specific Gravity 1.025 (1.005-1.030)
[2020-11-27] MEDS ORDERED: ACETAMINOPHEN 650MG/RECT SUPP PR ONE (17:00)
[2020-11-27] MEDS ORDERED: ASPIRIN 600 MG/SUPP PR ONE (17:14)
[2020-11-27] MEDS ORDERED: FAMOTIDINE 20 MG/2 ML VIAL IV ONE (17:14)
[2020-11-27] MEDS ORDERED: METOPROLOL TARTRATE 5 MG/5 ML INJ IV ONE (17:14)
[2020-11-27] MEDS ORDERED: PIPER/TAZO/NS 3.375gm 3.375 GM/100 ML BAG ONE (17:14)
[2020-11-27] MEDS ORDERED: NA CHLORIDE 0.9% 100 ML ONE (17:15)
[2020-11-27 17:18] LABS: SARS-COV-2 RT PCR NEGATIVE (NEGATIVE)
[2020-11-27 17:31] LABS: Blood Morphology Comment NOT SEEN (NOT SEEN); Platelet Estimate DECR; White Blood Cell Scan OK (OK)
[2020-11-27] MEDS ORDERED: HEPARIN/D5W 25,000 UNIT/500 ML BAG IV ONE (17:50)
[2020-11-27] MEDS ORDERED: ACETAMINOPHEN 500 MG TAB PO PRN (18:09)
--- NOTE | 2020-11-27 18:18 | P.HP ---
Certification for Inpatient With expected LOS: >2 Midnights Patient will require the following post-hospital care: None Practitioner: I am a practitioner with admitting privileges, knowledge of patient current condition, hospital course, and medical plan of care. Services: Services provided to patient in accordance with Admission requirements found in Title 42 Section 412.3 of the Code of Federal Regulations Patient History Date of Service: 11/28/20 Reason for admission: AMS History of Present Illness: Patient is an 89-year-old male with a past medical history significant for Hyperlipidemia, Bipolar disorder, Glaucoma, macular degeneration, hypertension, Legal Blindness, Dementia; Anxiety disorder who presents with c\o altered mental status. Patient is confused at baseline. Patient disoriented x3 and unable to provide any history. Patient was more confused than usual yesterday. Patient also noted to have associated signs and symptoms of cough, shortness of breath and wheezing. No other signs or symptoms noted. Symptoms are aggravated or relieved by nothing. Patient was brought to the ER for medical evaluation. Of note, patient is a resident of [facility] Allergies No Known Allergies Allergy (Unverified 11/27/20 19:57) Home medications list reviewed: Yes Home Medications: Acetaminophen [Tylenol] 650 mg PO Q6HP PRN 11/27/20 Amlodipine Besylate 5 mg PO DAILY 11/27/20 Aspirin [Mili Chewable] 81 mg PO DAILY 11/27/20 Atorvastatin Calcium [Lipitor] 20 mg PO BEDTIME 11/27/20 Buspirone HCl [Buspar] 20 mg PO TID 11/27/20 Cholecalciferol (Vitamin D3) [Vitamin D3] 2,000 unit PO DAILY 11/27/20 Divalproex Sodium [Depakote ER] 1,000 mg PO BID 11/27/20 Divalproex Sodium [Depakote ER] 250 mg PO BID 11/27/20 Latanoprost [Xalatan] 2.5 ml RIGHT EYE BEDTIME 11/27/20 Mag Hydroxide 8% [Milk Of Magnesia] 30 ml PO DAILYPRN PRN 11/27/20 Multivitamin [One-Daily Multi-Vitamin] 1 each PO DAILY 11/27/20 Rivastigmine Patch [Exelon 9.5 mg Patch] 9.5 mg TD DAILY 11/27/20 Sodium Chloride [Devin-128] 0.25 inch EACH EYE DAILY 11/27/20 clonazePAM [Klonopin] 0.5 mg PO BEDTIME 11/27/20 lisinopriL [Lisinopril] 40 mg PO DAILY 11/27/20 - Social History Smoking Status: Unknown if ever smoked Alcohol use: No CD- Drugs: No Place of Residence: Long-Term ([facility]) Review of Systems is unable to be obtained (Patient confused.) Physical Examination - Physical Exam General: Demented, Acute distress, Delirious HEENT: Atraumatic, PERRLA, Mucous membr. moist/pink, EOMI, Sclerae nonicteric Neck: Supple, 2+ carotid pulse no bruit, No LAD, Without JVD or thyroid abnormality Respiratory: Diminished, Expiratory wheezes, Inspiratory wheezes, Other (SOB) Cardiovascular: Regular rate/rhythm, Normal S1 S2 Capillary refill: <2 Seconds Gastrointestinal: Normal bowel sounds, No tenderness Musculoskeletal: No tenderness Integumentary: No rashes Neurological: Normal strength at 5/5 x4 extr, Normal tone, Normal affect, Abnormal gait, Dementia Lymphatics: No axilla or inguinal lymphadenopathy External genitalia: Deferred Rectal: Deferred - Studies Laboratory Data (last 24 hrs) 11/27/20 15:48: PT 14.0 H, INR 1.21 11/27/20 15:48: WBC 9.50 D, Hgb 14.7, Hct 43.0, Plt Count 124 L D 11/27/20 15:48: Sodium 143, Potassium 4.1, BUN 32 H, Creatinine 1.51 H, Glucose 133 H, Magnesium 1.9, Total Bilirubin 0.8, AST 52 H, ALT 29, Alkaline Phosphatase 70, Lipase 99 Assessment and Plan - Plan --Acute encephalopathy. Likely secondary to pneumonia. Patient is confused at baseline. CT head unremarkable for any acute intracranial abnormality. Continue supportive care. --Multifocal pneumonia. Blood cultures pending. Patient placed on antibiotics, neb treatments with albuterol\Atrovent, steroids and O2 therapy. --Acute respiratory failure with hypoxia. Likely secondary to pneumonia. Continue current treatment regimen. Patient will be transferred to ICU. --Dementia. With superimposed delirium secondary to pneumonia. Continue supportive care. --HLD. Continue statin when appropriate. --Elevated troponin. Cytogeneticist consulted. We will continue to trend troponin. Patient placed on heparin drip. Telemetry. Echocardiogram pending. Will await further recommendation from branch banker. --Hypocalcemia. Replete as needed. --Elevated BNP. Pulmonary edema noted on imaging. Lasix 20mg x1 dose ordered. Cytogeneticist on board. Echocardiogram to asses LV\valvular function and wall motion. Daily weigh and strict I/O. Further management per branch banker. --Hypokalemia. Replete as needed. --Hypertension. Poorly controlled. Continue home medications and labetalol as needed. --Glaucoma. Continue home medication. --DVT prophylaxis with heparin drip. Discharge Plan: Long-Term ([facility]) Plan to discharge in: Greater than 2 days - Advance Directives Does patient have a Living Will: No Does patient have a Durable POA for Healthcare: No - Code Status/Comfort Care Code Status Assessed: No Critical Care: Yes
[2020-11-27 19:44] LABS: Potassium 3.4 mmol/L (3.5-5.1); Thyroid Stimulating Hormone 0.629 uIU/mL (0.360-3.740)
[2020-11-27] MEDS ORDERED: CALCIUM GLUC 10% INJ 4.65 MEQ in NA CHLORIDE 0.9% 100 ML IV ONE (19:54)
[2020-11-27] MEDS ORDERED: ALBUTEROL 2.5 MG/3 ML NEB SOL ONE (19:56)
[2020-11-27] MEDS ORDERED: IPRATROPIUM BROM 0.5MG/2.5ML ONE (19:57)
[2020-11-27] MEDS ORDERED: HEPARIN/D5W 25,000 UNIT/500 ML BAG IV PRN (19:58)
[2020-11-27] MEDS: ALBUTEROL 2.5 MG/3 ML NEB SOL NEB SCH (20:20)
[2020-11-27] MEDS: IPRATROPIUM BROM 0.5MG/2.5ML NEB SCH (20:20)
[2020-11-27 20:35] LABS: Absolute Lymphocytes (CBC) 0.9 K/uL (0.7-4.9); Basophils % 0.4 % (0-1.3); Hematocrit 38.5 % (39.6-49.0); Lymphocytes % 9.7 % (15.3-44.8); MPV 7.9 fL (7.6-11.3); RBC Red Blood Cell Count 4.08 M/uL (4.33-5.43)
[2020-11-27 20:37] LABS: Blood Morphology Comment NOT SEEN (NOT SEEN); Platelet Estimate DECR; White Blood Cell Scan OK (OK)
[2020-11-27] MEDS ORDERED: LORazepam 2 MG/ML VIAL IV ONE (20:49)
[2020-11-27 21:06] LABS: Protime INR 1.33
[2020-11-27] MEDS ORDERED: LORazepam 2 MG/ML VIAL ONE (21:16)
[2020-11-27 22:15] VITALS: BMI 25.4
[2020-11-27] MEDS ORDERED: CALCIUM GLUCONATE 1 GM IVPB 1 GM/50 ML BAG IV ONE (23:05)
[2020-11-28] MEDS ORDERED: LABETALOL 20 MG/4ML SYRINGE IV PRN (00:24)
[2020-11-28] MEDS ORDERED: FUROSEMIDE 20 MG/ 2ML VIAL IV ONE (00:51)
[2020-11-28] MEDS: METHYLPREDNISOLONE 40 MG INJ IV SCH ×3 (00:55→19:44)
[2020-11-28] MEDS: LORazepam 2 MG/ML VIAL IV PRN (00:55)
[2020-11-28] MEDS: ALBUTEROL 2.5 MG/3 ML NEB SOL NEB SCH ×4 (02:20→19:40)
[2020-11-28] MEDS: IPRATROPIUM BROM 0.5MG/2.5ML NEB SCH ×4 (02:20→19:40)
[2020-11-28 03:09] LABS: Absolute Lymphocytes (CBC) 1.1 K/uL (0.7-4.9); Basophils % 0.1 % (0-1.3); Hematocrit 42.9 % (39.6-49.0); Lymphocytes % 10.4 % (15.3-44.8); RBC Red Blood Cell Count 4.53 M/uL (4.33-5.43)
[2020-11-28 03:20] LABS: Potassium 4.1 mmol/L (3.5-5.1)
[2020-11-28] MEDS: AZITHROMYCIN IV 500 MG in NA CHLORIDE 0.9% 250 ML IVPB SCH (09:52)
[2020-11-28] MEDS: CEFTRIAXONE/SWI 1gm 1 GM/10 ML SYR IVP SCH (09:59)
[2020-11-28] MEDS: BUSPIRONE HCL 5 MG TABLET PO SCH ×2 (15:14→19:43)
[2020-11-28] MEDS: DIVALPROEX ER 250 MG TAB PO SCH (19:43)
[2020-11-28] MEDS: ENOXAPARIN 80 MG/0.8 ML SQ SCH (19:43)
[2020-11-28] MEDS: ATORVASTATIN 20 MG TAB PO SCH (19:44)
[2020-11-28] MEDS: clonazePAM 0.5 MG TAB PO SCH (19:44)
[2020-11-28] MEDS: LATANOPROST OPTH SCH (20:06)
[2020-11-28] MEDS ORDERED: HOME MED 1 EA UNK (Divalproex Sodium [Depakote Er] 500 MG Tab.Er.24h) PO SCH (21:00)
[2020-11-29] MEDS: METHYLPREDNISOLONE 40 MG INJ IV SCH ×4 (00:43→18:34)
[2020-11-29] MEDS: ALBUTEROL 2.5 MG/3 ML NEB SOL NEB SCH ×4 (01:55→19:50)
[2020-11-29] MEDS: IPRATROPIUM BROM 0.5MG/2.5ML NEB SCH ×4 (01:55→19:50)
[2020-11-29 05:26] LABS: Absolute Lymphocytes (CBC) 0.8 K/uL (0.7-4.9); Basophils % 0.1 % (0-1.3); Hematocrit 40.7 % (39.6-49.0); Lymphocytes % 5.7 % (15.3-44.8); MPV 8.8 fL (7.6-11.3); RBC Red Blood Cell Count 4.29 M/uL (4.33-5.43)
[2020-11-29 05:47] LABS: Magnesium 2.2 mg/dL (1.8-2.4); Phosphorus 2.2 mg/dL (2.5-4.9); Potassium 3.8 mmol/L (3.5-5.1)
[2020-11-29] MEDS: ENOXAPARIN 80 MG/0.8 ML SQ SCH ×2 (06:46→20:38)
[2020-11-29] MEDS ORDERED: POTASSIUM 25 MEQ EFFERV TAB PO ONE (07:43)
--- NOTE | 2020-11-29 08:18 | RAD REPORT ---
EXAM DESCRIPTION: Sophia Single View11/29/2020 5:23 am CLINICAL HISTORY: Shortness of breath COMPARISON: November 27, 2020 FINDINGS: Mild bilateral interstitial lung opacities are probably chronic. The heart is mildly to moderately enlarged. Postsurgical changes involve the chest. IMPRESSION: No acute abnormalities displayed
--- NOTE | 2020-11-29 08:20 | ECHO ---
HEIGHT: 5 ft 7 in WEIGHT: 162 lb 9 oz DATE OF STUDY: 11/28/[address]: Sharita Garcia 2-DIMENSIONAL: YES M.MODE: YES DOPPLER: NO COLOR FLOW: NO TDS: PORTABLE: DEFINITY: BUBBLE STUDY: DIAGNOSIS: ELEVATED TROPONIN, BNP CARDIAC HISTORY: CATHERIZATION: NO SURGERY: YES PROSTHETIC VALVE: NO PACEMAKER: NO MEASUREMENTS (cm) DIASTOLIC (NORMALS) SYSTOLIC (NORMALS) IVSd 1.1 (0.6-1.2) LA Diam 3.2 (1.9-4.0) LVEF 55% LVIDd 3.9 (3.5-5.7) LVIDs 2.8 (2.0-3.5) %FS 28% LVPWd 1.1 (0.6-1.2) Ao Diam 2.8 (2.0-3.7) 2 DIMENSIONAL ASSESSMENT: RIGHT ATRIUM: NORMAL LEFT ATRIUM: NORMAL RIGHT VENTRICLE: NORMAL LEFT VENTRICLE: NORMAL TRICUSPID VALVE: MITRAL VALVE: PULMONIC VALVE: AORTIC VALVE: PERICARDIAL EFFUSION: NONE AORTIC ROOT: LEFT VENTRICULAR WALL MOTION: DOPPLER/COLOR FLOW: NOT REQUESTED COMMENTS: 2-DIMENSIONAL ECHOCARDIOGRAM ONLY. LEFT VENTRICULAR EJECTION FRACTION IS NORMAL 55-60%. NORMAL WALL MOTION. AORTIC VALVE IS THICKENED. RECOMMEND DOPPLER STUDY OF AORTIC VALVE. TECHNOLOGIST: MESERET DOYLE
[2020-11-29] MEDS: ASPIRIN 81 MG CHEWABLE TABLET PO SCH (09:00)
[2020-11-29] MEDS ORDERED: POTASS/SODIUM PHOSPHATE 1 PKT POWD.PACK PO ONE (09:00)
[2020-11-29] MEDS: DIVALPROEX ER 250 MG TAB PO SCH ×2 (09:00→20:41)
[2020-11-29] MEDS: CEFTRIAXONE/SWI 1gm 1 GM/10 ML SYR IVP SCH (12:07)
[2020-11-29] MEDS: RIVASTIGMINE 9.5 MG/24 HR PATCH TD SCH (12:07)
[2020-11-29] MEDS: AMLODIPINE 5 MG TAB PO SCH (12:08)
[2020-11-29] MEDS: BUSPIRONE HCL 5 MG TABLET PO SCH ×3 (12:08→20:39)
[2020-11-29 12:33] LABS: Blood Morphology Comment NOT SEEN (NOT SEEN); Platelet Estimate ADEQ; White Blood Cell Scan OK (OK)
[2020-11-29] MEDS: AZITHROMYCIN IV 500 MG in NA CHLORIDE 0.9% 250 ML IVPB SCH (14:04)
[2020-11-29] MEDS: NA CHLORIDE 0.9% 1,000 ML IV SCH (18:34)
[2020-11-29] MEDS: LORazepam 2 MG/ML VIAL IV PRN (18:46)
[2020-11-29] MEDS ORDERED: LORazepam 2 MG/ML VIAL IV ONE (19:34)
[2020-11-29] MEDS: clonazePAM 0.5 MG TAB PO SCH (20:38)
[2020-11-29] MEDS: ATORVASTATIN 20 MG TAB PO SCH (20:39)
[2020-11-29] MEDS: LATANOPROST OPTH SCH (21:00)
[2020-11-30] MEDS: IPRATROPIUM BROM 0.5MG/2.5ML NEB SCH ×2 (02:00→07:47)
[2020-11-30] MEDS: ALBUTEROL 2.5 MG/3 ML NEB SOL NEB SCH ×2 (02:00→07:47)
[2020-11-30] MEDS: NA CHLORIDE 0.9% 1,000 ML IV SCH (07:20)
[2020-11-30] MEDS: DIVALPROEX ER 250 MG TAB PO SCH (09:00)
[2020-11-30] MEDS: AMLODIPINE 5 MG TAB PO SCH (09:25)
[2020-11-30] MEDS: BUSPIRONE HCL 5 MG TABLET PO SCH (09:25)
[2020-11-30] MEDS: ENOXAPARIN 80 MG/0.8 ML SQ SCH (09:25)
[2020-11-30] MEDS: RIVASTIGMINE 9.5 MG/24 HR PATCH TD SCH (09:26)
[2020-11-30] MEDS: ASPIRIN 81 MG CHEWABLE TABLET PO SCH (09:26)
[2020-11-30] MEDS: CEFTRIAXONE/SWI 1gm 1 GM/10 ML SYR IVP SCH (09:26)
[2020-11-30] MEDS: METHYLPREDNISOLONE 40 MG INJ IV SCH (09:26)
[2020-11-30] MEDS: AZITHROMYCIN IV 500 MG in NA CHLORIDE 0.9% 250 ML IVPB SCH (09:27)
[2020-11-30 11:07] VITALS: O2SAT 98
[2020-11-30 11:52] LABS: Potassium 4.3 mmol/L (3.5-5.1)
[2020-11-30 11:54] LABS: Absolute Lymphocytes (CBC) 0.5 K/uL (0.7-4.9); Basophils % 0.2 % (0-1.3); Hematocrit 34.4 % (39.6-49.0); Lymphocytes % 3.9 % (15.3-44.8); MPV 9.1 fL (7.6-11.3); RBC Red Blood Cell Count 3.65 M/uL (4.33-5.43)
[2020-11-30 13:58] VITALS: BP 137/63; TEMP 98.4
--- NOTE | 2020-12-03 08:58 | CON ---
Date of Consultation: 11/28/2020 Reason For Consultation: Altered mental status, pneumonia, and elevated troponin. History Of Present Illness: Mr. Prado is an 89-year-old bipolar disorder, dyslipidemia, altered mental status. He is known to have elevated troponin before. No chest pain repo rted. No nausea, vomiting, diaphoresis, PND, orthopnea, pedal edema, palpitations, or syncope. Past Medical History: As stated above. Allergies: NONE. Review of Systems: Negative. Social History: Negative. Family History: Noncontributory. Medications: At home include aspirin, Klonopin, BuSpar, Norvasc, lisinopril, and Lipitor. Physical Examination: General: no acute distress. Vital Signs: Sinus rhythm. HEENT: Negative. Neck: Supple with no bruit. Chest: Clear. Cardiac: Revealed a regular rhythm and rate. No murmurs, gallops, or rubs. Abdomen: Benign. Extremities: Revealed no clubbing, cyanosis, or edema. Diagnostic Data: Showed . Impression And Plan: 1.Pneumonia. The patient is on antibiotics and inhalers. 2.Elevated troponin . His other problems include bipolar disorder, hypertension, dyslipid emia, anxiety, and dementia, appeared to be stable at this point. For now, continue present regimen. If the echocardiogram shows significant wall motion abnormalities, . JARVIS/HETAL Voice ID: [id number] Report ID: [id number]
--- NOTE | 2020-12-07 07:23 | P.PN ---
Subjective Date of Service: 11/28/20 Subjective: No new changes, No C/O voiced, Improving Patient's respiratory status seems to be improved. Still confused and still agitated. Questionable Aspiration. Continue to monitor her closely. Review of Systems 10-point ROS is otherwise unremarkable Physical Examination - Vital Signs Temperature: 98.4 F Blood Pressure: 137/63 Pulse: 60 Respirations: 16 Pulse Ox (%): 93 - Physical Exam General: Alert, In no apparent distress, Oriented x3 Respiratory: Clear to auscultation bilaterally, Normal air movement Cardiovascular: Regular rate/rhythm, Normal S1 S2, No murmurs Gastrointestinal: Normal bowel sounds, Soft and benign, Non-distended, No tenderness Musculoskeletal: No clubbing, No swelling, No tenderness Integumentary: No rashes Neurological: Sensation intact, Cranial nerves 3-12 intact - Studies Medications List Reviewed: Yes Assessment & Plan - Problems (Diagnosis) (1) Aspiration pneumonia Status: Acute (2) Toxic encephalopathy Status: Acute (3) History of dementia Status: Acute (4) Bipolar disorder Status: Acute - Plan Plan: - Serial troponins and EKG - Appreciate Cardiology consultation; Plan at this time is to medically manage the patient. Elevated troponin most likely related to pneumonia - Echocardiogram; - Anti-platelet therapy, anti coagulation, beta-saskia, statin, and O2 as needed - IV morphine for pain - Continue with IV antibiotics - Awaiting sputum and blood culture - Repeat chest x-ray - Will proceed with CT scan of the chest if pneumonia is not improved - Respiratory isolation is not needed - Continue with nebs as needed - O2 per protocol - Continue with gentle hydration - Repeat labs including CBC and renal function in a.m. - GI and DVT prophylaxis Discharge Plan: Home Plan to discharge in: Greater than 2 days - Advance Directives Does patient have a Living Will: No Does patient have a Durable POA for Healthcare: No - Code Status/Comfort Care Code Status Assessed: Yes Code Status: Full Code Critical Care: No Time Spent Managing PTS Care (In Minutes): 45
--- NOTE | 2020-12-07 07:32 | P.PN ---
Date of Service: 11/29/20 Subjective Patient clinically is doing much better. Continue to improve. Review of Systems 10-point ROS is otherwise unremarkable Physical Examination - Vital Signs Reviewed - Physical Exam General: Follows commands but still confused. No new complaints. Respiratory: Basilar rhonchi but overall clear Cardiovascular: Regular rate/rhythm, Normal S1 S2, No murmurs Gastrointestinal: Normal bowel sounds, Soft and benign, Non-distended, No tenderness Musculoskeletal: No clubbing, No swelling, No tenderness Neurological: Sensation intact, Cranial nerves 3-12 intact - Studies Medications List Reviewed: Yes Assessment & Plan - Problems (Diagnosis) (1) Aspiration pneumonia Status: Acute (2) Toxic encephalopathy Status: Acute (3) History of dementia Status: Acute (4) Bipolar disorder Status: Acute - Plan Plan: - Serial troponins and EKG - Appreciate Cardiology consultation; Plan at this time is to medically manage the patient. Elevated troponin most likely related to pneumonia - Echocardiogram; - Anti-platelet therapy, anti coagulation, beta-saskia, statin, and O2 as needed - IV morphine for pain - Continue with IV antibiotics - Awaiting sputum and blood culture - Repeat chest x-ray - Will proceed with CT scan of the chest if pneumonia is not improved - Respiratory isolation is not needed - Continue with nebs as needed - O2 per protocol - Continue with gentle hydration - Repeat labs including CBC and renal function in a.m. - GI and DVT prophylaxis
--- NOTE | 2020-12-07 08:04 | P.DS ---
Discharge Date: 11/30/20 Disposition: TRANSFER TO SNF - MEDICAL Discharge Condition: GOOD Reason for Admission: AMS - Problems (1) Aspiration pneumonia Status: Acute (2) Toxic encephalopathy Status: Acute (3) History of dementia Status: Acute (4) Bipolar disorder Status: Acute Brief History of Present Illness: Patient is an 89-year-old male with a past medical history significant for Hyperlipidemia, Bipolar disorder, Glaucoma, macular degeneration, hypertension, Legal Blindness, Dementia; Anxiety disorder who presents with c\o altered mental status. Patient is confused at baseline. Patient disoriented x3 and unable to provide any history. Patient was more confused than usual yesterday. Patient also noted to have associated signs and symptoms of cough, shortness of breath and wheezing. No other signs or symptoms noted. Symptoms are aggravated or relieved by nothing. Patient was brought to the ER for medical evaluation. Of note, patient is a resident of [facility] Course: Patient is clinically doing well. Clinical symptoms are improved. Patient will continue with antibiotic therapy. Continue with cardiac medications as well. At this time, patient is stable for discharge with outpatient followup. Vital Signs/Physical Exam: Reviewed General: Alert, Confused Laboratory Data at Discharge: WBC 12.00 K/uL (4.3-10.9) H D 11/30/20 11:21 Hgb 11.7 g/dL (13.6-17.9) L 11/30/20 11:21 Hct 34.4 % (39.6-49.0) L D 11/30/20 11:21 Plt Count 156 K/uL (152-406) 11/30/20 11:21 PT 15.3 SECONDS (9.5-12.5) H 11/27/20 20:16 INR 1.33 11/27/20 20:16 APTT 31.7 SECONDS (24.3-36.9) 11/30/20 05:11 Sodium 140 mmol/L (136-145) 11/30/20 11:21 Potassium 4.3 mmol/L (3.5-5.1) 11/30/20 11:21 BUN 33 mg/dL (7-18) H 11/30/20 11:21 Creatinine 1.21 mg/dL (0.55-1.3) 11/30/20 11:21 Glucose 389 mg/dL (74-106) H 11/30/20 11:21 Phosphorus 2.2 mg/dL (2.5-4.9) L 11/29/20 05:08 Magnesium 2.2 mg/dL (1.8-2.4) 11/29/20 05:08 Total Bilirubin 0.8 mg/dL (0.2-1.0) 11/27/20 15:48 AST 52 U/L (15-37) H 11/27/20 15:48 ALT 29 U/L (12-78) 11/27/20 15:48 Alkaline Phosphatase 70 U/L (45-117) 11/27/20 15:48 Troponin I 1.21 ng/mL (0.0-0.045) H* 11/29/20 05:08 Lipase 99 U/L (73-393) 11/27/20 15:48 Home Medications: Acetaminophen [Tylenol] 650 mg PO Q6HP PRN 11/27/20 Amlodipine Besylate 5 mg PO DAILY 11/27/20 Aspirin [Mili Chewable Aspirin] 81 mg PO DAILY 11/27/20 Atorvastatin Calcium [Lipitor*] 20 mg PO BEDTIME 11/27/20 Buspirone HCl [Buspar] 20 mg PO TID 11/27/20 Cholecalciferol (Vitamin D3) [Vitamin D3] 2,000 unit PO DAILY 11/27/20 Divalproex Sodium [Depakote ER] 1,000 mg PO BID 11/27/20 Divalproex Sodium [Depakote ER] 250 mg PO BID 11/27/20 Latanoprost [Xalatan] 2.5 ml RIGHT EYE BEDTIME 11/27/20 Mag Hydroxide 8% [Milk Of Magnesia*] 30 ml PO DAILYPRN PRN 11/27/20 Rivastigmine Patch [Exelon 9.5 mg Patch] 9.5 mg TD DAILY 11/27/20 clonazePAM [Klonopin*] 0.5 mg PO BEDTIME 11/27/20 Albuterol Neb [Proventil 0.083% Neb Soln] 2.5 mg NEB [id number] #60 amp 11/30/20 Azithromycin [Zithromax] 250 mg PO DAILY #5 tablet 11/30/20 Cefdinir [Omnicef] 300 mg PO BID #10 capsule 05/08/21 Ipratropium Neb [Atrovent*] 0.5 mg NEB [id number] #60 amp 11/30/20 Metoprolol Tartrate [Lopressor] 25 mg PO BID #60 tab 11/30/20 predniSONE [Prednisone] 20 mg PO DAILY #5 tablet 11/30/20 New Medications: Ipratropium Neb [Atrovent*] 0.5 mg NEB [id number] #60 amp Metoprolol Tartrate [Lopressor] 25 mg PO BID #60 tab Cefdinir [Omnicef] 300 mg PO BID #10 capsule predniSONE [Prednisone] 20 mg PO DAILY #5 tablet Albuterol Neb [Proventil 0.083% Neb Soln] 2.5 mg NEB [id number] #60 amp Azithromycin [Zithromax] 250 mg PO DAILY #5 tablet Physician Discharge Instructions: PROBLEM: Pneumonia GOAL: Clear understanding of disease process INSTRUCTIONS: Diet: heart healthy Activity: Fall precautions OK TO DC IV AND DC HOME FOLLOW-UP WITH PRIMARY CARE PROVIDER IN 1-2 WEEKS FOLLOW-UP WITH CARDIOLOGY and Pulmonary as needed RETURN TO THE ER IF symptoms worsen CALL or TEXT DR. RODRIGEZ AT [phone] IF ANY QUESTIONS REGARDING HOSPITAL STAY. PLEASE CALL THE FLOOR AT [phone] IF ANY MEDICATION OR NURSING QUESTIONS. Diet: AHA Activity: Fall precautions Followup: Jerry Muniz MD [ACTIVE - CAN ADMIT] - Nicanor Pham MD [ACTIVE - CAN ADMIT] - NONE,NONE [Primary Care Provider] - Time spent managing pt's care (in minutes): 35
== END 2020-11-30 14:20 | DRG 177 ==
LOC: ER 14:34 → ERHOLD 18:00 → 2ND 21:39
PROVIDERS: ADMIT Hospitalist; ATTEND Hospitalist
DX: J69.0 Pneumonitis due to inhalation of food and vomit (principal); J96.01 Acute respiratory failure with hypoxia; G92 Toxic encephalopathy; I21.9 Acute myocardial infarction, unspecified; E78.5 Hyperlipidemia, unspecified; I10 Essential (primary) hypertension; H54.8 Legal blindness, as defined in USA; F03.90 Unspecified dementia, unspecified severity, without behavioral disturbance, psychotic disturbance, mood disturbance, and anxiety; E83.51 Hypocalcemia; E87.6 Hypokalemia; H40.9 Unspecified glaucoma; F31.9 Bipolar disorder, unspecified; R77.8 Other specified abnormalities of plasma proteins; Z79.52 Long term (current) use of systemic steroids; Z79.82 Long term (current) use of aspirin; Z79.899 Other long term (current) drug therapy; Z20.822 Contact with and (suspected) exposure to COVID-19
CPT/HCPCS: 0240U; 36415; 51702; 70450; 71045; 71250; 74176; 80048; 80076; 80164; 81003; 82550; 82805; 83605; 83690; 83735; 83880; 84100; 84145; 84439; 84443; 84484; 85025; 85610; 85730; 87040; 93005; 93307; 94640; 99285; J0456; J0610; J0696; J1644; J1940; J2543; J2920; J7030; J7050